=== PATIENT | female | born 1995 | race Caucasian/White ===

== ENCOUNTER 2025-01-19 09:08 | Emergency (ER) | payer OTHER, SELFPAY ==
[2025-01-19] VITALS (10 sets, daily range): BP systolic 106–141; BP diastolic 78–97; PULSE 62–97; RESP 0–33; TEMP 36.4; O2SAT 96–98; BMI 39.0
--- OUTSIDE RECORDS SUMMARY | 2025-01-19 09:11 | XMS_ITS | Clinical Summary ---
Author Organization [facility] Address [address] [place] [id number] Care Team Providers Care Oracle Scm Consultant Name Role Phone Yumiko Olmedo Primary Care Provider Allergies Active Allergy Reactions Criticality Noted Date Comments Lisinopril Rash 03/05/2016 Medications rizatriptan (MAXALT) 5 mg tabletIndicatio ns:Intractable migraine with aura with status migrainosus Take 1 Tablet (5 mg) by mouth every 2 hours if needed for Migraine. Give at minimum 2hrs apart. Max Dose: 30mg per 24hrs. 12 Tablet 3 3 Active ondansetron (ZOFRAN) 4 mg tabletIndicatio ns:Intractable migraine with aura with status migrainosus Take 1 Tablet (4 mg) by mouth every 8 hours if needed for Nausea/Vomiting. 30 Tablet 3 Active diclofenac topical (VOLTAREN) 1 % gelIndications: Mastalgia Apply 2 g topically to affected area(s) four times daily. 50 g 4 Active norethindrone-e thinyl estradiol (Loestrin 08/01, ,) 1-20 mg-mcg tabletIndicatio ns:PMDD (premenstrual dysphoric disorder) Take 1 Tablet by mouth once daily. Take continuously 84 Tablet 3 4 Active Active Problems Problem Noted Date Diagnosed Date Empty sella 08/10/2023 Chronic hypertension affecting 021 History of precipitous delivery 01/31/2021 History of gestational hypertension 01/30/2021 BMI 34.0-34.9,adult 01/30/2021 Panic attacks 08/10/2014 Dysmenorrhea 06/30/2011 Attention deficit disorder with hyperactivity(31 4.01) 05/17/2007 Migraine headache Immunizations Immunization Administration Dates Next Due AMB Influenza, IIV4 PF (=>6 mos Flulaval,Fluzone Fluarix)(Flu Clinic Only) 04/24/2018,04/11/2015,03/29/2014 COVID-19 vaccine (Moderna 100mcg/0.5mL) PF, MDV 05/31/2021,10/06/2020,09/05/2020 DTP 03/23/2000, 6,1994,10/24,1994 Hepatitis A (Peds) 04/29/2010,05/17/2007 Hepatitis B (Peds) 06/22/1995,1994, 995 Human Papilloma Virus Vaccine 04/29/2010, 010,05/17/2007 Influenza, IIV3 (Age >=3 years) 05/03/2019,03/23 Influenza, IIV4 05/23/2021, 0,04/21/2017,03/25 MENINGOCOCCAL VACCINE 2 VIAL 2MO-55YO (MENVEO) 09/10/2012 MMR 03/03/2007,12/30/1995 Meningococcal Vaccine (Menactra) 05/17/2007 Oral Polio Vaccine 03/23/2000, 6,1994,08/27 Tdap 06/19/2021,03/23/2013,03/03/2007 Tuberculin (PPD) 05/18/2018,05/11/2018 Varicella Vaccine 12/26/2009,04/06/2007 Family History Medical History Relation Name Comments Good Health Father Coronary artery disease Maternal Grandfather Diabetes Maternal Grandfather Heart failure Maternal Grandfather Asthma Mother Diabetes Mother Cancer-colon No Family History Celiac disease No Family History Crohn's disease No Family History Ulcerative colitis No Family History Relation Name Status Comments Father Maternal Grandfather Mother Social History Tobacco Use Types Packs/Day Years Used Date Smoking Tobacco: Never Smokeless Tobacco: Never Tobacco Cessation:Counseling Given: Yes Alcohol Use Standard Drinks/Week Comments Not Currently 0 (1 standard drink = 0.6 oz pur e alcohol) PHQ-2 Answer Date Recorded PHQ-2 TOTAL SCORE 0 08/10/2023 Social Connections Answer Date Recorded Frequency of Communication with Friends and Fami ly Not on file 08/12/2023 Financial Resource Strain Answer Date R ecorded Difficulty of Paying Living Expenses 3 08/11/2022 Difficulty of Paying Living Expenses Not on file 08/11/2022 Food Insecurity Answer Date Recorded Worried About Running Out of Food in the Last Ye ar 1 08/11/2022 Transportation Needs Answer Date Record ed Lack of Transportation (Medical) 1 08/11/2022 Housing Stability Answer Date Recorded Unable to Pay for Housing in the Last Year 1 08/11/2022 Comments No Sex and Gender Information Value Date Recorded Sex Assigned at Not on file Legal Sex Female 5:27 AM [employer] Gender Identity Not on file Sexual Orientation Not on file Occupation Industry Job Start Date Job End Date [employer] Not on file Not on file Not on file Obstetrics History Para Term AB IAB SAB Ectopic Multiple Livin g Live Births 2 2 2 0 2 2 Date Outcome GA Total Labor Labor/2nd/3rd Weight Sex Type Anes PTL Priscilla A1 A5 Name Clin 2012 Term 37w 2d 3.06 kg (6 lb 12.1 oz) F Vag None Livin g 7 8 LATCH -STEW ART,P IPER SANDRA julien Delivery Location:[facility] 2021 Term 37w 3d 15h 42m 14h 57m/0h 31m/0h 14m 3.37 kg (7 lb 7 oz) F VAGINA L PAULA Epidur al Livin g 9 9 LATCH ,SAND RA BG LATCH Kinse l, Diamante n Krist marcus, DO Complications:Category II: I ndeterminate Delivery Location:Hospital ( [facility]) Last Filed Vital Signs Vital Sign Reading Time Taken Comments Blood Pressure 126/84 02/12/2024 4:22 PM CDT Pulse 80 02/12/2024 4:22 PM CDT Temperature 36.4 C (97.6 F) 08/10/2021 8:22 AM [employer] Respiratory Rate 16 01/19/2023 2:47 PM CDT Oxygen Saturation 96% 10/23/2023 8:39 AM CDT Inhaled Oxygen Concentration - - Weight 104.8 kg (231 lb) 10/23/2023 8:39 AM CDT Height 160 cm (5' 3) 10/23/2023 8:39 AM CDT Body Mass Index 40.92 10/23/2023 8:39 AM CDT Plan of Treatment Health Maintenance Due Date Last Done Comments Hepatitis C screening for age 18-79 2012 Pap test for age 21-65 01/31/2024 01/30/2021, 2017 COVID-19 vaccine series ( season) 2024 05/31/2021, 10/06/2020, 09/05/2020 Depression screening for age 12+ 08/10/2024 08/10/2023, 04/13/2023, 01/30/2021, Additional history exists BMI (ht and wt on same day) for age 18+ 10/22/2024 10/23/2023, 08/10/2023, 01/30/2021, Additional history exists Influenza Vaccine (#1) 2025 , 05/10/2020, 05/03/2019, Additional history exists Tetanus booster 06/19/2031 06/19/2021, 03/13, 03/03/2007 Hepatitis B series for 19+ Completed 06/22, 1994, 1994 HIV for age 15-65 Completed 01/01/2021, 02/23/2013 Pneumococcal series for age 6-49 Aged Out No longer eligible based on patient's age to complete this topic Procedures Procedure Name Priority Date/Time Associated Diagnosis Comments DIRECTOR OF COLLECTIONS AND ARCHIVES THIN PREP PAP SCREEN IMAGED Routine 01/30/2021 7:00 PM CDT Cervical cancer screening ANTI HIV 1/2 Routine 01/01/2021 9:55 AM CDT , unspecified gestational age (HC) from Last 3 Months or Most Recently Relevant to Health Maintenance Results * DIRECTOR OF COLLECTIONS AND ARCHIVES THIN PREP PAP SCREEN IMAGED (01/30/2021 7:00 PM CDT) Case Report Gynecologic Cytology Report Case: [id number] Authorizing Provider: Yumiko Olmedo, Collected: 01/30/2021 1900 DO Ordering Location: [facility] Received: 01/30/2021 192 Clinic First Screen: Eliceo Azevedo Specimen: DIRECTOR OF COLLECTIONS AND ARCHIVES ThinPrep Vial Screening, Cervical 02/08/2021 3:25 PM CDT [facility] INTERPRETATION/ RESULT NEGATIVE FOR INTRAEPITHELIAL LESION OR MALIGNANCY (NIL) (none) 02/08/2021 3:25 PM CDT [facility] at 1524 CDT SPECIMEN ADEQUACY Satisfactory for evaluation Endocervical component present 02/08/2021 3:25 PM CDT [facility] HPV REQUEST HPV if ASCUS 02/08/2021 3:25 PM CDT [facility] Date of LMP unknown 02/08/2021 3:25 PM CDT [facility] Last Pap Date 10/14/17 02/08/2021 3:25 PM CDT [facility] Last Pap Result NIL 3:25 PM CDT [facility] Abnormal Pap or Norman Bx in last 5 years No 02/08/2021 3:25 PM CDT [facility] Menstrual Status 02/08/2021 3:25 PM CDT [facility] Norman Bx Done Today No 02/08/2021 3:25 PM CDT [facility] Additional Information None given 02/08/2021 3:25 PM CDT [facility] Comment: Cytology is screened at [facility], Central Laboratory - [address], [place] [address] and [facility] - [address] [place] [address] [place] [address] [address] [facility] - [address] [place] [address] Interpreted at [facility] - [address] [place] [address], [place] [address] Automated Review Successful 02/08/2021 3:25 PM CDT [facility] Comment:Specimen processed s uccessfully by automated denial management representative device, ThinPrep Imaging System, [employer] Note The pap test is a screening technique, not a diagnostic procedure. It is used primarily to screen for squamous cancers and precursor lesions. Published studies have shown that it is subject to both false negative and false positive results. The pap test should not be used as the sole means to diagnose or exclude pre-malignant and malignant lesions. 02/08/2021 3:25 PM CDT [facility] Other (Cervical) Non-Blood / Unknown 01/30/2021 7:00 PM CDT 01/30/2021 7:25 PM CDT Yumiko Olmedo DO PATHOLOGY/CYTOLOGY Fin al Result [facility] [address] [place] [address], [place] * ANTI HIV 1/2 (01/01/2021 9:55 AM CDT) HIV-1/HIV-2 ANTIBODY Non-Reacti ve Non-Reacti ve 01/01/2021 4:15 PM CDT [facility] Comment:HIV-1 p24 and HIV-1/ HIV-2 Ab not detected. Blood BLOOD SPECIMEN / Unknown Butterfly / Unknown 01/01/2021 9:55 AM CDT 01/01/2021 10:02 AM CDT Yumiko Olmedo DO SEND OUTS Final Result [facility] [address] [place] [address], from Last 3 Months or Most Recently Relevant to Health Maintenance Insurance MEDICAID [facility] x5 (Home) [phone] x5 (Work) [address] [address] [place] [address] ATTN ACCOUNTS PAYABLE [id number] [place] [id number] Advance Directives * Full Code (Latest Code Status on File) Date Activated Date Inactivated Comments 08/08/2021 10:23 PM 08/10/2021 9:03 PM Question Answer Comments Code Status Discussion: Reviewed Preferences * Full Code Date Activated Date Inactivated Comments 08/07/2021 8:31 PM 08/08/2021 10:23 PM Question Answer Comments Code Status Discussion: Reviewed Preferences * Full Code Date Activated Date Inactivated Comments 05/28/2013 2:02 AM 05/30/2013 12:04 AM * Full Code Date Activated Date Inactivated Comments 05/28/2013 12:57 AM 05/28/2013 2:02 AM * Full Code Date Activated Date Inactivated Comments 05/21/2013 9:44 PM 05/22/2013 2:12 AM Care Teams Oracle Scm Consultant Relationship Specialty Start Date End Date Yumiko Olmedo DO [address] [place] [address] PCP - General Family Practice 01/01/21
--- NOTE | 2025-01-19 09:53 | ED_ITS ---
HPI - General Adult General Date Seen: 01/19/25 Chief complaint: Dizziness/Vertigo Stated complaint: Lightheaded, dizzy Time Seen by Provider: 01/19/25 09:53 History of Present Illness HPI narrative: 29 yo F presenting to the ER because she is feeling dizzy, weak, lightheaded, nauseous. She has been healthy and well lately. She was normal yesterday and last night when she went to. When she woke this morning she got out of bed and upon standing felt very lightheaded and unsteady. She was trying to walk to the bathroom but her vision actually started to go dark. She felt like she might pass. She was able to get to the bathroom and urinate. Throughout the morning she has just continued to feel little bit lightheaded and unsteady. She is not really having spinning or vertigo. No headache. No blurry vision but sometimes when she stands up her vision starts to go dark and she starts to see little spots. No double vision. She has been nauseous but not vomiting. No numbness or focal weakness in her legs. However which she stands up she says her legs just feel ?like jelly? bilaterally. She has not been ataxic or leaning against the wall. She has not fallen. She has been healthy lately. No recent dysuria, urgency, frequency, or any uri nary symptoms. Menstrual cycle has been normal. Normal appetite. Normal food and water intake. No black or bloody stools. No fever. No cough. No known sick exposures. No known suspicious food. Per records from [facility] she has a history of gestational hypertension, elevated BMI, empty sella, migraine headaches, dysmenorrhea, ADHD, panic attacks. Patient does note that she has a history of migraine headaches. She is not having 1 this morning. She was surprised to hear about her history in the line a chart of empty sella. She had not been aware of this Related Data Previous Rx's ?Medication ?Instructions ?Recorded ondansetron 4 mg disintegrating 4 mg PO Q8H PRN nausea and 01/19/25 tablet vomiting #10 tabs Allergies Allergy/AdvReac Type Severity Reaction Status Date / Time No Known Drug Allergies Allergy Verified 01/19/25 09:16 PFSH PFS Social History (Reviewed 06/20/24 @ 15:10 by BATSHEVA Pollard Smoking Status: Never smoker How often do you have a drink containing alcohol: never AUDIT-C Alcohol total score: 0 Non-prescribed substance use: denies use Exam Narrative: Exam Narrative: Constitutional: Appears well-developed and well-nourished. Alert. Polite and Conversant. Non toxic. HENT: Head: Atraumatic. Nose: Nose normal. Mouth/Throat: Oral mucosa is clear and moist. Not desiccated or cracked. no trismus. Pharynx normal. Tonsils symmetric. No tonsillar enlargement, erythema, or exudate. Eyes: Conjunctivae normal. EOM normal. Pupils equal, round, and reactive to light. No scleral icterus. Neck: Normal range of motion. Neck supple. No tracheal deviation present. No JVD Cardiovascular: Normal rate, regular rhythm. No gallop. No friction rub. No murmur heard. Symmetric radial artery pulses Pulmonary/Chest: Effort normal. No stridor. No respiratory distress. No wheezes. No rales. No rhonchi . No tenderness. Abdominal: Soft. Bowel sounds normal. No distension. No mass. No tenderness. No rebound. No guarding. No CVA tenderness. Musculoskeletal: RUE: Normal range of motion. No tenderness. No deformity LUE: Normal range of motion. No tenderness. No deformity RLE: Normal range of motion. No edema. No tenderness. No deformity LLE: Normal range of motion. No edema. No tenderness. No deformity Lymph: No cervical adenopathy. Neurological: Mental status normal. Attention normal. Alert and oriented x3. GCS 15. Memory normal. Speech fluent. Cognition normal. Cranial Nerves intact II-XII except I did not formally test gag or visual acuity. EOMI. Palate elevates symmetrically and tongue protrudes in the midline. Strength: 5/5 trapezius on the right and left 5/5 deltoid on the right and left 5/5 biceps on the right and left 5/5 triceps on the right and left 5/5 logistic specialist on the right and left 5/5 thumb opposition on the right and le ft 5/5 finger abduction on the right and le ft 5/5 hip flexors (L3) on the right and le ft 5/5 quadriceps (L4) on the right and lef t 5/5 tibialis anterior on the right and l eft 5/5 EHL (L5) on the right and left 5/5 gastrocnemius (S1) on the right and left 5/5 hamstring on the right and left Sensation intact to light touch in both upper extremities (C4-T1) Sensation intact to light touch in Both lower extremities (L4-S1). Finger to nose and coordination normal. Gait normal. No ataxia. Romberg normal. Skin: Skin is warm and dry. No rash noted. No pallor. Normal capillary refill. Psychiatric: Normal mood. Normal affect. Const: Vital Signs, click to edit/add: Vital Signs - 24 hr 01/19/25 09:16 01/19/25 09:21 01/19/25 10:31 Temperature 97.5 F L Pulse Rate 75 Pulse Rate [Pulse Oximeter] 72 Pulse Rate [orthos tatic lying Pulse Oximeter] 72 Pulse Rate [orthos tatic sitting Puls e Oximeter] 76 Pulse Rate [orthos tatic standing Pul se Oximeter] 97 Respiratory Rate 16 10 L Blood Pressure Blood Pressure [Le ft Upper Arm] 141/91 H Blood Pressure [or thostatic lying Le ft Arm] 141/91 H Blood Pressure [or thostatic sitting Left Arm] 140/89 H Blood Pressure [or thostatic standing Left Arm] 133/97 H Pulse Oximetry 98 [facility] 01/19/25 10:32 01/19/25 10:51 01/19/25 11:00 Temperature Pulse Rate 69 71 62 Pulse Rate [Pulse Oximeter] Pulse Rate [orthos tatic lying Pulse Oximeter] Pulse Rate [orthos tatic sitting Puls e Oximeter] Pulse Rate [orthos tatic standing Pul se Oximeter] Respiratory Rate 13 33 H 0 L Blood Pressure 124/90 H Blood Pressure [Le ft Upper Arm] Blood Pressure [or thostatic lying Le ft Arm] Blood Pressure [or thostatic sitting Left Arm] Blood Pressure [or thostatic standing Left Arm] Pulse Oximetry 96 97 97 Oxygen Delivery Me thod 01/19/25 11:02 01/19/25 11:15 01/19/25 11:30 Temperature Pulse Rate 65 67 66 Pulse Rate [Pulse Oximeter] Pulse Rate [orthos tatic lying Pulse Oximeter] Pulse Rate [orthos tatic sitting Puls e Oximeter] Pulse Rate [orthos tatic standing Pul se Oximeter] Respiratory Rate 12 10 L 7 L Blood Pressure 116/85 Blood Pressure [Le ft Upper Arm] Blood Pressure [or thostatic lying Le ft Arm] Blood Pressure [or thostatic sitting Left Arm] Blood Pressure [or thostatic standing Left Arm] Pulse Oximetry 97 97 98 Oxygen Delivery Me thod 01/19/25 11:32 Temperature Pulse Rate 65 Pulse Rate [Pulse Oximeter] Pulse Rate [orthos tatic lying Pulse Oximeter] Pulse Rate [orthos tatic sitting Puls e Oximeter] Pulse Rate [orthos tatic standing Pul se Oximeter] Respiratory Rate 8 L Blood Pressure 106/78 Blood Pressure [Le ft Upper Arm] Blood Pressure [or thostatic lying Le ft Arm] Blood Pressure [or thostatic sitting Left Arm] Blood Pressure [or thostatic standing Left Arm] Pulse Oximetry 97 Oxygen Delivery Me thod Course Vital Signs Vital signs: Initial Vital Signs Temperature 97.5 F L 01/19/25 09:16 Temperature Source Temporal Artery Scan 01/19/25 09:16 Pulse Rate 72 01/19/25 09:16 Pulse Rhythm Regular 01/19/25 09:16 Pulse Strength 3+ Normal 01/19/25 09:16 Respiratory Rate 16 01/19/25 09:16 Blood Pressure 141/91 H 01/19/25 09:16 Blood Pressure Mean 107 H 01/19/25 09:16 Blood Pressure Position Supine 01/19/25 09:16 Pulse Oximetry 98 01/19/25 09:16 Oxygen Delivery Method Room Air 01/19/25 09:16 Vital Signs Temperature 97.5 F L 01/19/25 09:16 Pulse Rate 72 01/19/25 09:16 Respiratory Rate 16 01/19/25 09:16 Blood Pressure 141/91 H 01/19/25 09:16 Pulse Oximetry 98 01/19/25 09:16 Oxygen Delivery Method Room Air 01/19/25 09:16 Temperature 97.5 F L 01/19/25 09:16 Pulse Rate 65 01/19/25 11:32 Respiratory Rate 8 L 01/19/25 11:32 Blood Pressure 106/78 01/19/25 11:32 Pulse Oximetry 97 01/19/25 11:32 Oxygen Delivery Method Room Air 01/19/25 09:16 Medications Administered Medications: Discontinued Medications Generic Name Dose Route Start Last Admin Trade Name Freq PRN Reason Stop Dose Admin Sodium Chloride 1,000 mls @ 1,000 mls/hr 01/19/25 10:15 01/19/25 11:40 0.9 % Sodium Chloride 1000 Ml IV 01/19/25 11:14 Infused .Q1H JESSICA Infusion Ondansetron HCl 4 mg 01/19/25 10:05 01/19/25 10:37 Ondansetron 2 Mg/Ml Inj IVP 01/19/25 10:06 4 mg ONCE ONE Administration Medical Decision Making MDM Narrative Medical decision making narrative: Very pleasant 29-year-old female presenting to the ER today for lightheadedness and dizziness that for showed up this morning after she got out of bed. She was healthy and well yesterday. Differential for her dizziness is broad. She is not describing any vertigo or spinning or a sensation of movement. She describes more of an lightheaded feeling and presyncopal when she stands up. Workup for causes lightheadedness is undertaken EKG shows sinus rhythm without ischemia or arrhythmia. She is not having any chest pain we did we did check a screening troponin and it is normal. I do not think she needs to be admitted for serial troponin testing. She is not short of breath, tachycardic, or hypoxic and has no other risk factors for PE. She is overall low risk by PERC. She has not had any cough or fever to raise concern for pneumonia or lung infection. No wheezing or bronchospasm. Lab work shows normal hemoglobin. No recent black or bloody stools or heavy m enstrual cycles. No signs are symptoms of internal bleeding. Other CBC values are reassuring. Metabolic profile shows normal electrolytes including sodium and potassium, normal kidney function. Normal blood sugar. Urinalysis does show 5-10 white cells per high-power field and positive leukocyte esterase with moderate bacteria, however also moderate squamous epithelial cells. Discussed the urinalysis findings with the patient. She denies any symptoms of UTI and she suspects this is probably a contaminated specimen. We discussed options for treatment including empiric antibiotics, repeating urinalysis, cath urinalysis. She would prefer to keep an eye and will watch for any urinary symptoms. Hold off on antibiotics for now. After receiving Zofran for nausea that symptom is resolved. She received a L of saline here in the ER and after this was ambulating steadily in her room. She still says she feels a little bit dizzy and lightheaded. However she feels comfortable discharging home. Discussed that right now the cause for her dizziness is unclear. Would recommend re-evaluation within 24 hours if not completely improved and return to the ER right away with any worsening or developing new symptoms. Patient is agreeable. Questions answered. Lab Data Labs: Lab Results 01/19/25 01/19/25 Range/Units 10:45 10:50 WBC 8.06 (4.50-11.00) K/uL RBC 4.91 (4.00-5.20) m/uL Hgb 13.7 (12.0-16.0) gm/dL Hct 40.8 (33.0-51.0) % MCV 83 (80-100) fL MCH 28 (26-34) pg MCHC 34 (32-36) gm/dL RDW Coeff of Isak 12.8 (11.5-15.5) % Plt Count 333 (140-440) K/uL Neut % (Auto) 66.0 (42.0-72.0) % Lymph % (Auto) 24.8 (20-44) % Smyth % (Auto) 7.2 (0.0-11.0) % Eos % (Auto) 0.5 (0.0-7.0) % Baso % (Auto) 0.6 (0.0-3.0) % Neut # (Auto) 5.32 (1.7-7.0) K/uL Lymph # (Auto) 2.00 (0.90-2.90) K/uL Smyth # (Auto) 0.60 (0.00-0.90) K/UL Eos # (Auto) 0.04 (0.00-0.50) K/uL Baso # (Auto) 0.05 (0.00-0.30) K/uL Abs Immat Gran (auto) 0.07 (0.00-0.30) K/uL Imm/Tot Granulo (auto) 0.9 % Sodium 137 (135-149) mmol/L Potassium 3.7 (3.6-5.1) mmol/L Chloride 106 (96-114) mmol/L Carbon Dioxide 24 (20-32) mmol/L Anion Gap 7 (7-15) mEq/L BUN 5 (5-24) mg/dL Creatinine 0.6 (0.5-1.5) mg/dL Estimated Creat Clear 113.41 Estimated GFR 124 ml/min Glucose 92 (60-115) mg/dL Lactate 0.8 (0.5-1.9) mmol/L Calcium 8.8 (8.4-10.6) mg/dL Troponin I < 0.01 (0.01-0.04) ng/mL HCG, Qual Negative (Negative) Urine Color Yellow (Yellow) Urine Appearance Slightly Cloudy A (Clear) Urine pH 6.5 (5.0-8.5) Ur Specific Center Line 1.020 (1.000-1.030) Urine Protein Negative (Negative) Urine Glucose (UA) Negative (Negative) Urine Ketones Negative (Negative) Urine Blood Trace-intact A (Negative) Urine Nitrite Negative (Negative) Urine Bilirubin Negative (Negative) Urine Urobilinogen 0.2 (0.2-1.0) Ur Leukocyte Esterase 1+ A (Negative) Urine RBC 2-5 A (0-2) Urine WBC 5-10 A (0-5) Ur Squamous Epith Cells Moderate A (None-Few) Urine Bacteria Moderate A (None) ECG Data Attestation: I personally reviewed and interpreted this ECG as follows: Interpretation: Normal sinus rhythm Rate 74 IA interval 202. No delta wave QRS axis is normal. Computer mentions ?cannot rule out anterior infarct? but I believe there are no pathologic Q-waves. No infarct. No pathologic ST segment elevation or depression. QTC 452 Discharge Plan Discharge Clinical Impression: Dizziness Patient Disposition: Home, Self-Care Condition: Stable Instructions: Lightheadedness (ED), Dizziness (ED) Additional Instructions: As we discussed, at this point your workup looks reassuring, but we do not know the definitive cause for your lightheadedness and dizziness. Please try to rest for today. Drink plenty of fluids and stay hydrated. Eat healthy food to keep her energy up. If you are not completely improved within 24 hours, please see your doctor or come back to the ER. If you get worse at any point or develops new symptoms such as headache, fever, numbness or weakness in your arms or legs, or have any other problems please come back to the ER right away. Prescriptions: New ondansetron 4 mg tablet,disintegrating 4 mg PO Q8H PRN (Reason: nausea and vomiting) Qty: 10 0RF Follow Up/Referrals: Provider,Not a Local [Primary Care Provider, Family Practice] Stand Alone Forms: MyHealth Info Instructions
[2025-01-19] MEDS: ONDANSETRON 2 MG/ML inj 4 MG IVP (10:37)
[2025-01-19 10:47] LABS: Lactate* 0.8 mmol/L (0.5-1.9)
[2025-01-19 10:57] LABS: Appearance Urine Slightly Cloudy (Clear)
[2025-01-19 11:05] LABS: Chloride* 106 mmol/L (96-114); Potassium* 3.7 mmol/L (3.6-5.1); Sodium* 137 mmol/L (135-149)
[2025-01-19 11:08] LABS: Anion Gap 7 mEq/L (7-15); Blood Urea Nitrogen* 5 mg/dL (5-24); Calcium* 8.8 mg/dL (8.4-10.6); Carbon Dioxide* 24 mmol/L (20-32); Creatinine* 0.6 mg/dL (0.5-1.5); Est. Creatinine Clearance* 113.41; Estimated Glomerular Filt Rate 124 ml/min; Glucose* 92 mg/dL (60-115); Hematocrit 40.8 % (33.0-51.0); Hemoglobin* 13.7 gm/dL (12.0-16.0); Immature Granulocytes Abs Auto 0.07 K/uL (0.00-0.30); Immature Granulocytes Pct Auto 0.9 %; Lymphocytes Absolute Auto 2.00 K/uL (0.90-2.90); Mean Corpuscular HGB Conc 34 gm/dL (32-36); Mean Corpuscular Hemoglobin 28 pg (26-34); Mean Corpuscular Volume 83 fL (80-100); RDW Coefficient of Variation % 12.8 % (11.5-15.5); Red Blood Count 4.91 m/uL (4.00-5.20); White Blood Count* 8.06 K/uL (4.50-11.00)
[2025-01-19 11:10] LABS: Slide Review Reflex No
[2025-01-19 11:20] LABS: HCG Qualitative Serum* Negative (Negative)
== END 2025-01-19 11:58 | disposition home or self-care (01) ==
PROVIDERS: Emergency Provider Emergency Medicine
DX: R42 Dizziness and giddiness (principal); R53.1 Weakness; E23.6 Other disorders of pituitary gland
CPT/HCPCS: 36415; 80048; 81001; 83605; 84484; 84703; 85025; 87086; 93005; 96361; 96374; 99283; 99284; J2405; J7030